=== PATIENT | female | born 1985 | race Caucasian/White ===

== ENCOUNTER 2025-07-01 14:30 | Emergency (ER) | payer SELFPAY ==
[2025-07-01 14:46] VITALS: TEMP 97
--- NOTE | 2025-07-01 14:58 | ERPHSYRPT ---
- History of Present Illness Time Seen by Provider: 07/01/25 14:52 Source: patient Patient Subjective Stated Complaint: . Triage Nursing Assessment: . Physician History: Patient is a 40-year-old female who presents with left lower abdominal/pelvic pain and flank pain that began today. The patient does have a history of kidney stones. She reports that her last kidney stone was so long ago that she does not actually remember what it felt like. She is unsure if this is similar. She reports that she did start her menstrual period today and initially thought that the pain was due to menstrual cramps. She reports that the pain is worse than her normal menstrual cramps. She reports that the menstrual cramps resolved earlier today but the pain is still there. She reports that at times it feels like "my ovary is ripping in half". She denies any history of ovarian torsion. She reports that she is perimenopausal and so her menstrual periods are irregular so she is unsure if this was a normal menstrual period. Allergies/Adverse Reactions: aspirin Allergy (Verified 07/01/25 14:46) cephalexin monohydrate [From Keflex] Allergy (Verified 07/01/25 14:46) peanut Allergy (Verified 07/01/25 14:46) Hx Tetanus, Diphtheria Vaccination/Date Given: No Hx Influenza Vaccination/Date Given: No Hx Pneumococcal Vaccination/Date Given: No Travel Risk - International Travel Have you traveled outside of the country in past 3 weeks: No - Emerging Infectious Disease Are you exhibiting symptoms associated with any current EIDs: No - Review of Systems Constitutional: No Fever Respiratory: No Symptoms Cardiac: No Symptoms Abdominal/Gastrointestinal: Abdominal Pain, Nausea, No Vomiting Genitourinary Symptoms: Vaginal Bleeding (Consistent with menstrual period), No Dysuria, No Frequency - Past Medical History Pertinent Past Medical History: Yes Neurological History: No Pertinent History ENT History: No Pertinent History Cardiac History: Hypertension Respiratory History: No Pertinent History Endocrine Medical History: No Pertinent History Musculoskeletal History: No Pertinent History GI Medical History: No Pertinent History History: No Pertinent History Psycho-Social History: No Pertinent History Female Reproductive Disorders: No Pertinent History - Past Surgical History Past Surgical History: Yes Female Surgical History: Tubal Ligation - Female History Hx Last Menstrual Period: now Hx Now: No - Social History Smoking Status: Current every day smoker Exposure to second hand smoke: Yes Drug Use: none - Social Determinants of Health Will the patient participate in the screening: Yes Do you worry about a steady place to live?: No Do you have any problems with any of the following?: No known problems In the past 12 months,have you had to go without utilities?: No Transportation Issues: No Has anyone in your support network made you feel unsafe?: No Have you or anyone in your house had to go w/o enough food: No - Nursing Vital Signs Nursing Vital Signs: Initial Vital Signs Pulse Rate 92 H 07/01/25 14:44 Respiratory Rate 18 07/01/25 14:44 Blood Pressure 131/78 07/01/25 14:44 O2 Sat by Pulse Oximetry 100 07/01/25 14:44 Pain Scale Pain Intensity 4 - Physical Exam General Appearance: mild distress Respiratory Exam: normal breath sounds Cardiovascular Exam: regular rate/rhythm Gastrointestinal/Abdomen Exam: tenderness (Left lower quadrant tenderness), No rebound Neurologic Exam: alert, oriented x 3 Skin Exam: normal color SpO2 Interpretation: normal SpO2: 99 Ordered Tests: Active Orders 24 hr Category Date Time Status IV Insertion STAT Care 07/01/25 14:58 Completed ABDOMEN AND PELVIS W/0 CONTRAS [CT] Stat Exams 07/01/25 15:00 Completed PELVIS TRANS VAGINAL [US] Stat Exams 07/01/25 17:00 Taken CBC W DIFF Stat Lab 07/01/25 15:04 Completed CMP Stat Lab 07/01/25 15:04 Completed CULTURE,URINE Stat Lab 07/01/25 15:00 Received HCG QUALITATIVE, URINE Stat Lab 07/01/25 15:10 Completed UA W/RFX UR CULTURE Stat Lab 07/01/25 15:00 Completed Medication Summary Discontinued Medications Generic Name Dose Route Start Last Admin Trade Name Freq PRN Reason Stop Dose Admin Sodium Chloride 1,000 mls @ 999 mls/hr 07/01/25 14:58 07/01/25 16:22 Sodium Chloride 0.9% 1000 Ml IV 07/01/25 15:58 Infused .Q1H1M STA Infusion Sodium Chloride Confirm 07/01/25 15:09 Sodium Chloride 0.9% 1000 Ml Administered 07/01/25 15:10 Dose 1,000 mls @ ud .ROUTE .STK-MED ONE Ketorolac Tromethamine 30 mg 07/01/25 14:58 07/01/25 15:14 Ketorolac Tromethamine 30 Mg/Ml Inj IV 07/01/25 14:59 30 mg STAT ONE Administration Ketorolac Tromethamine Confirm 07/01/25 15:09 Ketorolac Tromethamine 30 Mg/Ml Inj Administered 07/01/25 15:10 Dose 30 mg .ROUTE .STK-MED ONE Ondansetron HCl 4 mg 07/01/25 14:58 07/01/25 15:13 Ondansetron Hcl 4 Mg/2 Ml Vial IV 07/01/25 14:59 4 mg STAT ONE Administration Ondansetron HCl Confirm 07/01/25 15:09 Ondansetron Hcl 4 Mg/2 Ml Vial Administered 07/01/25 15:10 Dose 4 mg .ROUTE .STK-MED ONE Lab/Rad Data: Laboratory Result Diagrams 07/01/25 15:04 07/01/25 15:04 Laboratory Results 07/01/25 07/01/25 07/01/25 Range/Units 15:10 15:04 15:04 WBC 11.0 H (3.98-10.04) x10^3/uL RBC 4.35 (3.93-5.22) x10^6/uL Hgb 13.8 (11.2-15.7) g/dL Hct 41.6 (34.1-44.9) % MCV 95.6 H (79.4-94.8) fL MCH 31.7 (25.6-32.2) pg MCHC 33.2 (32.2-35.5) g/dL RDW 13.2 (11.7-14.4) % Plt Count 316 (182-369) x10^3/uL MPV 10.3 (9.4-12.3) fL Gran % 58.7 (34.0-71.1) % Immature Gran % (Auto) 0.3 (0.001-0.429) % Nucleat RBC Rel Count 0.0 (0.00-0.2) % Eos # (Auto) 0.38 H (0.04-0.36) x10^3/uL Immature Gran # (Auto) 0.03 (0.001-0.031) x10^3u/L Absolute Lymphs (auto) 3.30 (1.18-3.74) x10^3/uL Absolute Monos (auto) 0.78 (0.24-0.86) x10^3/uL Absolute Nucleated RBC 0.00 (0.00-0.012) x10^3u/L Lymphocytes % 30.0 (19.3-51.7) % Monocytes % 7.1 (4.7-12.5) % Eosinophils % 3.5 (0.7-5.8) % Basophils % 0.4 (0.1-1.2) % Absolute Granulocytes 6.46 H (1.56-6.13) x10^3/uL Basophils # 0.04 (0.01-0.08) x10^3/uL Sodium 138 (135-145) mmol/L Potassium 3.9 (3.5-5.1) mmol/L Chloride 106 (98-107) mmol/L Carbon Dioxide 26 (22-30) mmol/L Anion Gap 9.5 (5-15) MEQ/L BUN 12 (7-17) mg/dL Creatinine 0.92 (0.52-1.04) mg/dL Estimated GFR 79.7 ML/MIN Glucose 87 (74-106) mg/dL Calcium 9.5 (8.4-10.2) mg/dL Total Bilirubin 0.80 (0.2-1.3) mg/dL AST 25 (14-36) U/L ALT 22 (0-35) U/L Alkaline Phosphatase 74 (38-126) U/L Serum Total Protein 7.0 (6.3-8.2) g/dL Albumin 4.0 (3.5-5.0) g/dL Urine Color (Yellow) Urine Appearance (Clear) Urine pH (4.6-8.0) Ur Specific [place] (1.005-1.030) Urine Protein (Negative) Urine Glucose (UA) (Negative) mg/dL Urine Ketones (Negative) Urine Blood (Negative) Urine Nitrite (Negative) Urine Bilirubin (Negative) Urine Urobilinogen (0.2) mg/dL Ur Leukocyte Esterase (Negative) U Hyaline Cast (Auto) (0-2) /LPF Urine Microscopic RBC (0-5) /HPF Urine Microscopic WBC (0-5) /HPF Ur Epithelial Cells (None Seen) /HPF Urine Bacteria (None Seen) /HPF Urine Culture Reflexed (NO) Urine HCG, Qual NEGATIVE (NEGATIVE) 07/01/25 Range/Units 15:00 WBC (3.98-10.04) x10^3/uL RBC (3.93-5.22) x10^6/uL Hgb (11.2-15.7) g/dL Hct (34.1-44.9) % MCV (79.4-94.8) fL MCH (25.6-32.2) pg MCHC (32.2-35.5) g/dL RDW (11.7-14.4) % Plt Count (182-369) x10^3/uL MPV (9.4-12.3) fL Gran % (34.0-71.1) % Immature Gran % (Auto) (0.001-0.429) % Nucleat RBC Rel Count (0.00-0.2) % Eos # (Auto) (0.04-0.36) x10^3/uL Immature Gran # (Auto) (0.001-0.031) x10^3u/L Absolute Lymphs (auto) (1.18-3.74) x10^3/uL Absolute Monos (auto) (0.24-0.86) x10^3/uL Absolute Nucleated RBC (0.00-0.012) x10^3u/L Lymphocytes % (19.3-51.7) % Monocytes % (4.7-12.5) % Eosinophils % (0.7-5.8) % Basophils % (0.1-1.2) % Absolute Granulocytes (1.56-6.13) x10^3/uL Basophils # (0.01-0.08) x10^3/uL Sodium (135-145) mmol/L Potassium (3.5-5.1) mmol/L Chloride (98-107) mmol/L Carbon Dioxide (22-30) mmol/L Anion Gap (5-15) MEQ/L BUN (7-17) mg/dL Creatinine (0.52-1.04) mg/dL Estimated GFR ML/MIN Glucose (74-106) mg/dL Calcium (8.4-10.2) mg/dL Total Bilirubin (0.2-1.3) mg/dL AST (14-36) U/L ALT (0-35) U/L Alkaline Phosphatase (38-126) U/L Serum Total Protein (6.3-8.2) g/dL Albumin (3.5-5.0) g/dL Urine Color Marvell A (Yellow) Urine Appearance Clear (Clear) Urine pH 7.0 (4.6-8.0) Ur Specific [place] <=1.005 (1.005-1.030) Urine Protein 30 (Negative) Urine Glucose (UA) Negative (Negative) mg/dL Urine Ketones Negative (Negative) Urine Blood Large A (Negative) Urine Nitrite Negative (Negative) Urine Bilirubin Negative (Negative) Urine Urobilinogen 0.2 (0.2) mg/dL Ur Leukocyte Esterase Moderate A (Negative) U Hyaline Cast (Auto) NONE SEEN (0-2) /LPF Urine Microscopic RBC >100 A (0-5) /HPF Urine Microscopic WBC 11-20 A (0-5) /HPF Ur Epithelial Cells None Seen (None Seen) /HPF Urine Bacteria None Seen (None Seen) /HPF Urine Culture Reflexed YES (NO) Urine HCG, Qual (NEGATIVE) CT/ABDOMEN AND PELVIS W/0 CONTRAS Indication: Left lower quadrant pain. Kidney stones. Multiple contiguous axial images obtained throughout and pelvis without contrast using renal stone protocol. Comparison: None Lung bases clear. Heart not enlarged. At least 5-6 punctate calculi in each kidney. No hydronephrosis/hydroureter or evidence for obstructive uropathy. Noncontrasted stomach and bowel loops appear nonobstructed with normal appendix. No free fluid/air. Remaining liver, gallbladder, pancreas, spleen, adrenal glands, kidneys, ureters, bladder, uterus, and aorta are unremarkable for noncontrast exam. Osseous structures intact. Impression: 1. Nonobstructing bilateral renal micro-calculi. 2. Remaining CT abdomen/pelvis without contrast exam is normal. Reported by: LUCIA VILLELA DO Signed by: LUCIA VILLELA DO - Progress Progress Note: Discussed negative CT scan with the patient. Discussed the plan for an ultrasound because the patient is concerned about her ovary. Preliminary ultrasound negative for torsion. Discussed results with the patient. Explained that the patient would receive a call if the official read was any different. Discussed treatment with antibiotics for a urinary tract infection. Recommended that the patient follow-up with her primary care provider. Patient expressed understanding. - Departure Departure Disposition: Home Clinical Impression: Urinary tract bacterial infections Condition: Stable Critical Care Time: No Referrals: DOCTOR,NO FAMILY [Primary Care Provider, UNKNOWN] - Follow up/PCP as directed Instructions: Urinary tract infections in adults Prescriptions: Smz/Tmp Ds Tablet [Bactrim Ds Tablet] 1 udtab PO BID #14 tablet
[2025-07-01 15:07] LABS: BASOPHIL % 0.4 % (0.1-1.2); Basophil (Absolute #) 0.04 x10^3/uL (0.01-0.08); Eosinophil (Absolute #) 0.38 x10^3/uL (0.04-0.36); Hematocrit 41.6 % (34.1-44.9); Hemoglobin 13.8 g/dL (11.2-15.7); IMMATURE GRAN # 0.03 x10^3u/L (0.001-0.031); IMMATURE GRAN % 0.3 % (0.001-0.429); Lymphocyte (Absolute #) 3.30 x10^3/uL (1.18-3.74); Mean Corpuscular Hemoglobin 31.7 pg (25.6-32.2); Mean Corpuscular Hgb Concent. 33.2 g/dL (32.2-35.5); Monocyte (Absolute #) 0.78 x10^3/uL (0.24-0.86); NUCLEATED RBC # 0.00 x10^3u/L (0.00-0.012); NUCLEATED RBC % 0.0 % (0.00-0.2); Platelet Count 316 x10^3/uL (182-369); Red Blood Count 4.35 x10^6/uL (3.93-5.22); White Blood Count 11.0 x10^3/uL (3.98-10.04)
[2025-07-01] MEDS ORDERED: Zofran 4 MG/2 ML VIAL ONE (15:09)
[2025-07-01] MEDS ORDERED: TORAdol 30 mg Injection ONE (15:09)
[2025-07-01] MEDS: Zofran 4 MG/2 ML VIAL IV ONE (15:13)
[2025-07-01] MEDS: TORAdol 30 mg Injection IV ONE (15:14)
[2025-07-01 15:15] LABS: HCG URINE TEST NEGATIVE (NEGATIVE)
[2025-07-01 15:19] LABS: Glucose, Urine Negative (Negative); Protein,Urine Dip 30 (Negative); RBC >100 /HPF (0-5)
[2025-07-01 15:21] LABS: Calcium 9.5 mg/dL (8.4-10.2); Carbon Dioxide 26.0 mmol/L (22-30); Creatinine 1 0.92 mg/dL (0.52-1.04); EST GLOMERULAR FILTRATION RATE 79.7 ML/MIN; Glucose 87.0 mg/dL (74-106); Potassium 3.9 mmol/L (3.5-5.1); SGOT/AST 25.0 U/L (14-36); SGPT/ALT 22.0 U/L (0-35); Total Protein 7.0 g/dL (6.3-8.2)
--- NOTE | 2025-07-01 16:43 | XRAY ---
Indication: Left lower quadrant pain. Kidney stones. Multiple contiguous axial images obtained throughout and pelvis without contrast using renal stone protocol. Comparison: None Lung bases clear. Heart not enlarged. At least 5-6 punctate calculi in each kidney. No hydronephrosis/hydroureter or evidence for obstructive uropathy. Noncontrasted stomach and bowel loops appear nonobstructed with normal appendix. No free fluid/air. Remaining liver, gallbladder, pancreas, spleen, adrenal glands, kidneys, ureters, bladder, uterus, and aorta are unremarkable for noncontrast exam. Osseous structures intact. Impression: 1. Nonobstructing bilateral renal micro-calculi. 2. Remaining CT abdomen/pelvis without contrast exam is normal.
[2025-07-01 17:05] VITALS: RESP 18
[2025-07-01 19:05] VITALS: BP 138/97; PULSE 94
[2025-07-01 19:23] VITALS: O2SAT 99
--- NOTE | 2025-07-01 22:01 | XRAY ---
Indication: Left pelvic pain. Two-dimensional transvaginal pelvic sonogram performed. Comparison: None Uterus retroflexed measuring 6.4 x 4.3 x 6.1 cm. No focal solid/cystic uterine mass. Endometrial stripe measures 6.4 mm. No endometrial cavity mass or fluid collection. Right ovary measures 2.0 x 2.5 x 1.7 cm and left measures 3.1 x 3.2 x 1.9 cm. Normal follicular cysts and perfusion bilaterally. No suspicious adnexal mass or free fluid. Impression: Negative transvaginal pelvic sonogram. Comment: Preliminary report was given.
== END 2025-07-01 19:02 | disposition home or self-care (01) ==
LOC: ED 14:30
DX: N39.0 Urinary tract infection, site not specified (principal); R10.30 Lower abdominal pain, unspecified; F17.200 Nicotine dependence, unspecified, uncomplicated; Z87.442 Personal history of urinary calculi